=== PATIENT | female | born 1985 | race American Indian/Alaskan Native ===

== ENCOUNTER 2018-01-02 06:13 | Day surgery (SDC) | payer BC ==
[2017-12-21 10:48] VITALS: BMI 30.9
[2018-01-02] MEDS ORDERED: Lactated Ringer's 1,000 ML IV ONE ×3 (06:59→12:40)
--- NOTE | 2018-01-02 07:09 | CP.SDSHP ---
Same Day Surgery H & P - History Proposed Procedure: L ankle arthroscopy, repair of posterior tibial tendon,FHL transfer & MECHELLE Pre-Op Diagnosis: Left foot and ankle chorinic pain; painful hardware - Allergies Allergies: Allergies No Known Allergies Allergy (Verified 12/21/17 10:48) - Physical Exam Vital Signs: Vital Signs 01/02/18 01/02/18 06:35 06:38 Temperature 98.5 F Pulse Rate 74 74 Respiratory 20 Rate Blood Pressure 126/87 O2 Sat by Pulse 97 Oximetry Heart: WNL Lungs: WNL - {Optional Preform as Required} Abdomen: WNL Integument: WNL Ortho: Other ENT: WNL - Date & Time Date: 01/02/18 Time: 07:08 Short Stay Discharge - Short Stay Discharge Admitting Diagnosis/Reason for Visit: M76.822/ [id number]/ M93.272/ Disposition: HOME/ ROUTINE Referrals: Maryann Rivero, [facility] [Primary Care Provider] - Additional Instructions (Diet, Activity): Patient in good/stable condition for discharge home. Pt to resume medications per medical reconciliation. Resume regular diet. Please keep dressing clean, dry, & intact to surgical site, use plastic bag over bandage for showering, wear post op shoe at all times when ambulating, call clinic if you see signs of infection (redness, swelling, malodor), please make an appointment to see Dr. Rivero in office/clinic within 1 week for post-op check. Progress Note/Discharge Note with Instructions: Pt was seen and examined in SDS Pt NPO status was confirmed All Pre-op testing and clearance was in the chart Pt has exhausted all conservative treatment at this time and is opting for surgical intervention Pt was explained procedure and post-operative course All pt's questions were answered to satisfaction No guarantees were made Pt understands all risks, benefits and complications of procedure Pt will follow-up with Dr. Rivero
--- NOTE | 2018-01-02 07:11 | CP.PCM.PN ---
Subjective - Date & Time of Evaluation Date of Evaluation: 01/02/18 Time of Evaluation: 07:09 - Subjective Subjective: Podiatry SDS note: Dr. Rivero 32 year old female patient with no significant PMHx was seen and evaluated prior to left foot and ankle surgery. Patient reports that she has been NPO since 10 pm yesterday. Denies of having any adverse reaction to anesthesia. Denies of having any recent F/N/V/C/SOB/CP/headache. PMHx: denies PSHx: Flat foot reconstruction surgery - left foot Allergies: N.K.D.A SHx: Denies smoking, EtOH or illicit drug usage Objective - Vital Signs/Intake and Output Vital Signs (last 24 hours): Temp Pulse Resp BP Pulse Ox 98.5 F 74 20 126/87 97 01/02/18 06:35 01/02/18 06:38 01/02/18 06:35 01/02/18 06:35 01/02/18 06:35 - Constitutional Appears: Well, Non-toxic, No Acute Distress - Extremities Exam Additional comments: LEft LE focused exam: VASC: DP/PT pulses are palpable 2/4 B/L. Cap refill time: < 3 seconds to all digits. Skin temperature warm to cool from proximal to distal. no pitting or non -pitting edema noted DERM: surgical scars noted from the previous left foot procedure, no open lesions, no inter digital maceration, nails are cut to hygenic length, no clinical suspicion of active infection NEURO: Epicritic and protective sensation intact ORTHO: mild pain during AROM and PROM at the AJ; MMT: 5/5 during ROM in all 4 direction at the ankle joint Assessment and Plan - Assessment and Plan (Free Text) Assessment: 32 year old female patient with no significant PMHx was seen prior to left foot and ankle surgery Plan: Pt was seen and examined in SDS Pt NPO status was confirmed All Pre-op testing and clearance was in the chart Pt has exhausted all conservative treatment at this time and is opting for surgical intervention Pt was explained procedure and post-operative course All pt's questions were answered to satisfaction No guarantees were made Pt understands all risks, benefits and complications of procedure Pt will follow-up with Dr. Rivero
[2018-01-02] MEDS ORDERED: Lidocaine 1% Inj (20ml) IJ ONE (07:15)
[2018-01-02] MEDS ORDERED: Bupivacaine 0.5% Inj(30mL) IJ ONE (07:15)
[2018-01-02] MEDS ORDERED: Sodium Chloride 0.9% 1,000 ML IV SCH (07:15)
[2018-01-02] MEDS ORDERED: ceFAZolin 2 GM in Sodium Chloride 0.9% 100 ML IVPB ONE (07:15)
[2018-01-02] MEDS ORDERED: Bupivacaine 0.5% Inj(30mL) ONE (07:29)
[2018-01-02] MEDS ORDERED: Lidocaine Hydrochloride 0 ML INJ ONE (07:29)
[2018-01-02] MEDS ORDERED: Midazolam 2 MG/2 ML VIAL ONE (07:35)
[2018-01-02] MEDS ORDERED: Propofol 10 mg/ml Inj (20 ML) ONE (07:35)
[2018-01-02] MEDS ORDERED: Ropivacaine 0.5% 30ML IV ONE (07:46)
[2018-01-02] MEDS ORDERED: EPINEPHrine 1 mg/ml (1:1000) Inj ONE (07:58)
--- NOTE | 2018-01-02 08:28 | PCM.ANESB2 ---
Popliteal Nerve Block - Popliteal Nerve Block Date of Procedure: 01/02/18 Anesthesiologist: Estuardo Pre-Procedure Diagnosis: Left ankle pain Post-Procedure Diagnosis: Same Procedure Performed: Popliteal Nerve Block Left - Procedure Popliteal Nerve Block: This procedure was explained to the patient that it is for post-operative pain management. Consent was obtained after a thorough discussion with the patient regarding the benefits and possible complications of local anesthetic block of the sciatic nerve at the popliteal level. The patient was brought to the operating room and standard monitors are applied. Time-out was held with the circulating nurse to confirm the correct surgery and the appropriate block. After applying oxygen by nasal cannula and administering IV Sedation, patient's operative leg was gently raised and supported and the groove in between the biceps femoris and vastus lateralis muscles was carefully palpated. The skin approximately 8cm above the popliteal crease was then marked. The ultrasound transducer was then applied to the posterior thigh approximately 8cm above the popliteal crease in the transverse plane and the sciatic nerve before its division was visualized lateral to the popliteal artery and in between the bicep femoris and semimembranosus/semitendinosus muscles. After identification, the lateral portion of the thigh was prepped with Betadine solution three times and Lidocaine 1% was injected subcutaneously for topical anesthesia. At this point, a # 21 gauge Stimuplex insulated 4 inch needle was inserted into pre-marked area and advanced in a perpendicular direction. The needle was inserted above the ultrasound transducer in-plane towards the sciatic nerve in a [id number] direction. Needle advancement was performed carefully under direct ultrasound visualization. Nerve stimulator was used and dorsiflexion of the foot was elicited at a current of MA. After repeated negative aspiration, __20___cc of ___.5__ % ____ropivacaine was injected and this was flowed with ___10___ cc of ___.5___% ____bupivacaine . Under ultrasound guidance the local anesthetics were observed surrounding sciatic nerve . The needle was removed intact and sterile dressing was applied. The patient tolerated the popliteal nerve block well with stable vital signs and was subsequently prepared for the surgery.
[2018-01-02] MEDS ORDERED: EPINEPHrine 1 mg/ml (1:1000) Inj IV ONE (08:47)
[2018-01-02] MEDS ORDERED: Sevoflurane - Inhalation Anesthetic Liq (250 ml) ONE (11:27)
[2018-01-02] MEDS ORDERED: MethylPREDNISolone Depo 40 mg/ml Inj ONE (11:45)
[2018-01-02] MEDS ORDERED: MethylPREDNISolone Depo 40 mg/ml Inj IM ONE ×2 (11:49)
[2018-01-02] MEDS ORDERED: Bupivacaine 0.5% 50 ML IJ ONE ×2 (11:49)
[2018-01-02] MEDS ORDERED: Oxycodone/Acetaminophen 5/325 mg Tab PO PRN ×2 (12:43)
--- NOTE | 2018-01-02 12:49 | PCM.SURG1 ---
Surgeon's Initial Post Op Note - Surgeon's Notes Surgeon: Dr. Rivero Patrol Mother: Dr. Andrade, Dr. Soria Type of Anesthesia: General Endo, Block Regional Anesthesia Administered By: Dr. Smart Pre-Operative Diagnosis: 1. Left ankle OCD of the talus. 2. Left foot painful hardware. 3. Left foot flexible flatfoot deformity. 4. Left foot posterior tibial synovitis. 5. Left foot spring ligament rupture. 6. Left foot sinus tarsi syndrome Operative Findings: see dictation. M: Arthrex Biocartilage, Arthrex internal brace. I: 5ml 1:1 0.5% marcaine plain, kenalog 40 Post-Operative Diagnosis: 1. Left ankle OCD of the talus. 2. Left foot painful hardware. 3. Left foot flexible flatfoot deformity. 4. Left foot posterior tibial synovitis. 5. Left foot spring ligament rupture. 6. Left foot sinus tarsi syndrome Operation Performed: 1. Left ankle arthroscopy and synovectomy with repair of talar OCD. 2. Left foot removal of hardware. 3. Left foot spring ligament repair and augmentation. 4. Left foot FDL transfer. 5. Left foot sinus tarsi injection of corticosteroid Specimen/Specimens Removed: none Estimated Blood Loss: EBL {In ML}: 15 Blood Products Given: N/A Drains Used: No Drains Post-Op Condition: Good Date of Surgery/Procedure: 01/02/18 Time of Surgery/Procedure: 12:51
[2018-01-02] MEDS ORDERED: Lactated Ringer's 1,000 ML IV SCH (13:00)
[2018-01-02] MEDS: HYDROmorphone 0.5 mg/0.5 ml ISec IVP PRN ×3 (13:20→13:38)
[2018-01-02 13:33] VITALS: RESP 18
--- NOTE | 2018-01-02 14:11 | RAD ---
PROCEDURE: Left Foot Radiographs. HISTORY: s/p surgery COMPARISON: Not available FINDINGS: BONES: Bony detail obscured by overlying fiberglass splint. There is a healed fracture of the 1st metatarsal. There is a pin affixing the anterior and middle calcaneus. There are 2 screws through the posterior calcaneus. There is questionable fracture of the navicular. There is a lucency within the navicular suggesting prior orthopedic hardware placement. JOINTS: Normal. SOFT TISSUES: Normal. OTHER FINDINGS: None. IMPRESSION: Limited examination. Status post fixation of calcaneus with placement of orthopedic hardware. Questionable fracture of the navicular in association with a lucency likely reflecting prior surgery. Please correlate with history.
[2018-01-02 15:54] VITALS: BP 137/67; PULSE 81; TEMP 97.8; O2SAT 100
--- NOTE | 2018-01-04 07:02 | OP ---
PROCEDURE DATE: 01/02/2018 PREOPERATIVE DIAGNOSES: 1. Left ankle synovitis and osteochondral lesion of the talus. 2. Left foot painful retained hardware. 3. Left foot flexible pes planovalgus deformity. 4. Left foot posterior tibial synovitis. 5. Left foot spring ligament rupture. 6. Left foot sinus tarsi syndrome. POSTOPERATIVE DIAGNOSES: 1. Left ankle synovitis and osteochondral lesion of the talus. 2. Left foot painful retained hardware. 3. Left foot flexible pes planovalgus deformity. 4. Left foot posterior tibial synovitis. 5. Left foot spring ligament rupture. 6. Left foot sinus tarsi syndrome. PROCEDURES PERFORMED: 1. Left ankle arthroscopy and synovectomy with repair of talar osteochondral lesion with allograft. 2. Left foot removal of hardware. 3. Left foot posterior tibial tendon synovectomy and flexor digitorum longus tendon transfer. 4. Left foot spring ligament repair and augmentation. 5. Left foot sinus tarsi injection with corticosteroid. SURGEON: Maryann Rivero MD ASSISTANTS: Abel Andrade DPM, PGY-3 and Sergio Soria DPM, PGY-1. TYPE OF ANESTHESIA: General and popliteal block. ANESTHESIOLOGIST: Mann Smart MD INDICATIONS: The patient is a 32-year-old female with the aforementioned diagnosis. The patient has been treated by Dr. Rivero in her office as an outpatient where she had exhausted all forms of conservative treatment. The patient presents seeking surgical intervention at this time. All alternatives, benefits, complications, and risks to surgical procedure have been explained to the patient at length. The patient verbalizes understanding and wished to proceed. All questions were addressed and answered. No guarantees were given nor implied. The consent was signed and n.p.o. status was confirmed prior to bringing the patient to the operating room. OPERATIVE PROCEDURE: The patient was brought to the operating room and placed on the operating room table in the supine position. A pneumatic thigh tourniquet was placed around the patient's left thigh. After induction of general anesthesia, the left lower extremity was prepped and draped in the normal sterile manner and the procedure began. PROCEDURE #1: Left ankle arthroscopy and synovectomy with repair of talar osteochondral lesion with allograft. Attention was directed to the anterior aspect of the patient's left ankle where a stab incision was made with 15 blade at the level of the ankle joint just medial to the tibialis anterior tendon, which served as a medial portal for the ankle arthroscopy. The incision was deepened for blunt hemostat to the superficial and subcutaneous tissues down to the level of the ankle joint capsule. Next, the trocar and cannula were inserted through the medial portal and used to penetrate the medial ankle joint capsule. The trocar was then removed and the arthroscope was then inserted to the cannula. At this time, the ankle joint was visualized on the monitoring and it was noted there was a significant amount of synovitis throughout the ankle joint. Next, a 15 blade was then again utilized to make a lateral portal for the ankle arthroscopy under visualization to ensure that all superficial neurovascular structures were avoided. Again, a blunt hemostat was utilized to deepened the incisions with superficial and subcutaneous tissues down to the level of the lateral ankle joint capsule. The trocar was then utilized to penetrate the lateral ankle joint capsule. Next, the shaver was inserted to the lateral portal and triangulated and visualized with arthroscope down the monitor. The shaver was then utilized to debride all visible synovitic and fibrous tissue within the ankle joint. At this time, it was noted that all the synovitis and impinging fibrotic tissue had been adequately debrided. The arthroscope was then utilized to inspect the cartilage and the dome of the talus. The shaver was then removed from lateral portal and a probe was inserted and utilized to further inspect the integrity of the cartilage on the talar dome. It was noted that there was a compromised spot in the posteromedial aspect of the talar dome where the cartilage was not solid and not intact. The probe was then utilized to probe the boundaries of osteochondral lesion. Once the osteochondral lesion was defined, the shaver was reinserted through the lateral portal and utilized to remove the nonviable cartilage. The shaver was then removed from the lateral portal and a curette was inserted and utilized to curette all the nonviable cartilage from the osteochondral lesion. A shaver and curette were then used interchangeably to further deepen lesion down to the subchondral bone. Once the subchondral bone was visualized in all was inserted through the lateral portal and with a mallet, it was utilized to penetrate through the subchondral bone in the area of the osteochondral defect. The awl was utilized until the fatty droplets from the underlying talar bone marrow were visualized coming through the subchondral bone. With the osteochondral lesion now adequately microfractured and prepared, the awl was removed from the lateral portal and the shaver was reinserted and the irrigation was turned off and the ankle joint was dried using the suction. At this time, the Arthrex BioCartilage was being prepared for using osteochondral defect. The shaver was then removed from the lateral portal and a series of cotton tip applicators were inserted to the lateral portals to dry the osteochondral lesion for preparation of insertion of the BioCartilage allograft with the side adequately prepared. The applicator for the Arthrex BioCartilage allograft was inserted through lateral portal and the BioCartilage was placed within the osteochondral defect ensuring to not over extend the cartilaginous borders. The applicator was then removed and a freer elevator was inserted through the lateral portal used to smooth the BioCartilage allograft. The freer elevator was then removed from the lateral portal and the fibrin glue applicator was inserted and its applicator fibrin glue was placed overtop of BioCartilage to secure utilizing standard technique. The arthroscope and applicator were then removed from the medial and lateral portal and the fibrin glue was allowed to solidify for approximately 5 minutes. The medial and lateral portals were then closed utilizing 4-0 Prolene suture. PROCEDURE #2: Left foot removal of painful retained hardware. Intraoperative fluoroscopy was utilized to localized the retained staple at the first metatarsal medial cuneiform joint. An incision was made directly overlying this area in the location of the previous surgical site with 15 blade. The incision was deepened through the superficial and subcutaneous tissues utilizing a sharp and blunt dissection. Care was taken to retract all vital neurovascular and tendon structures throughout the duration of the procedure. A freer elevator and Santamaria elevator were further utilized to free the capsular and periosteal tissues from the location of the staple. It was noted that throughout the dissection, there was an abundant amount of hypertrophic fibrotic scar tissue in the area. The staple was then visualized and an osteotome and mallet were utilized to remove the staple from the bone and it was passed from the surgical field to the back table. The surgical area was then flushed with copious amounts of sterile normal saline. The periosteum and capsular tissues were then reapproximated utilized 3-0 Vicryl suture, the subcutaneous tissues were then reapproximated utilizing 4-0 Vicryl suture, and the skin was then reapproximated utilizing 4-0 Monocryl suture. PROCEDURE #3: Left foot posterior tibial tendon synovectomy and flexor digitorum longus tendon transfer. Attention was then directed to the medial aspect of the patient's left foot and ankle where a curvilinear incision was made from just posterior to the medial malleolus to the navicular tuberosity. An incision was made with the 15 blade and deepened to the superficial and subcutaneous tissues utilizing sharp and blunt dissection. Care was taken to retract all vital neurovascular structures throughout the duration of the procedure and all superficial bleeding vessels were cauterized utilizing electrocautery. Dissection was then carried down to the level of the flexor retinaculum and the flexor retinaculum was incised linearly with a dissecting scissor. At this time, the foot was manipulated so as to identify the posterior tibialis tendon directly deep to the tendon sheath. Once the tendon was identified, a dissecting scissor was utilized to make an incision through the tendon sheath. At this time, it was noted that there was a abundant amount of degenerative synovitic tissue within the tendon sheath to the posterior tibialis tendon. A pickup and dissecting scissor were utilized to remove all the degenerative tissue and synovitis from within the tendon sheath and it was passed from the surgical field to the back table. Next, the posterior tibialis tendon was dissected down to the level of the incision at the navicular tuberosity and the navicular tuberosity and navicular body were further exposed. Next, the flexor digitorum longus tendon was identified deep to the tendon sheath and again dissecting scissor was utilized to incise the tendon sheath and exposed the flexor digitorum longus tendon. Flexor digitorum longus tendon was then dissected all the way distally to the master knot of Karl. At this time a preparation for a flexor digitorum longus tendon transfer, the digitorum longus tendon was transected just proximal to the master knot of Karl. A FiberLoop whipstitch was then utilized to secure the distal line of the flexor digitorum longus tendon and there was satisfied to be used for a transfer at a later step. PROCEDURE #4: Left foot spring ligament repair and augmentation. Utilizing the same surgical incision, the spring ligament could be visualized and we noted that it had been ruptured and was no longer intact. Dissection was then carried down to the level of the sustentaculum flaquito and the sustentaculum flaquito was visualized. Next, the preparation for the Arthrex spring ligament internal brace repair, the guidewire for the cannulated drill was inserted just inferior to the sustentaculum flaquito and visualized to be in the appropriate location with intraoperative fluoroscopy. Next, the cannulated drill for the Arthrex 3.5-mm SutureTak was drilled overlying the previously inserted guidewire utilizing standard technique. A guidewire was then removed and the appropriate sized tap was utilized to compare the hole for the insertion of the internal brace. The 3.5-mm SutureTak with two FiberTape attached tails were then inserted utilizing standard technique into this previously just inferior to the sustentaculum flaquito. Next, attention was directed to the navicular body where the guide pin for the Arthrex at the all transfer reamer was inserted from plantar to dorsal through the navicular body. Intraoperative fluoroscopy was utilized taking from appropriate positioning of the guide pin. Next, the tendon sizer was utilized to size the flexor digitorum longus tendon and the appropriate size 5-mm reamer was chosen and used to ream over the guide pin from plantar to dorsal through the navicular body. The reamer and guide pin were then removed from the surgical site. The first tail from the internal brace was then inserted from dorsal to plantar through the hole in the navicular body utilizing the suture passer. The second tail of the internal brace along with the FDL tendon was then inserted from plantar to dorsal to the hole in the navicular body utilizing the guide pin and suture passer. Next, staple withheld in the appropriately corrected position with appropriate attention on both end of the internal brace as well as the FDL tendon. The 4.75 interference SutureTak was then inserted from plantar to dorsal through the hole in the navicular body to care the spring ligament internal brace repair and the flexor digitorum longus tendon transfer. The SutureTak was inserted utilizing standard technique and after insertion, it was noted that there was excellent stability of the repair. The surgical area was then flushed with copious amount of sterile normal saline. The periosteal and a capsular as well as the retinacular structures were then reapproximated utilizing 2-0 Vicryl suture, the retinacular and deep layers were then reapproximated utilizing 3-0 Vicryl suture, the subcutaneous tissues were then reapproximated utilizing 4-0 Vicryl suture, and the skin was reapproximated utilizing 4-0 Monocryl suture in a running subcuticular fashion. PROCEDURE #5. Left foot sinus tarsi injection with corticosteroid. A 5 mL one-to-one preparation of 0.5% Marcaine plain and Kenalog-40 was then injected into the sinus tarsi from the lateral aspect of the patient's foot. Postoperative bandages consisted of Steri-Strips, Xeroform, DSD, Nicki, cast padding, a posterior splint, and Robert bandages. POSTOPERATIVE CONDITION: The patient tolerated the procedures and anesthesia well with no apparent complications or complaints. The patient was escorted from the OR to the recovery room with vital signs stable and neurovascular status intact. The patient will follow up with Dr. Rivero in her office on an outpatient basis. Abel Andrade DPM Maryann Rivero MD
== END 2018-01-02 16:05 | disposition home or self-care (01) ==
LOC: H.OPSURG 06:13
PROVIDERS: ATTEND Podiatrist Foot & Ankle Surgery
DX: M93.272 Osteochondritis dissecans, left ankle and joints of left foot (principal); M76.822 Posterior tibial tendinitis, left leg; M65.872 Other synovitis and tenosynovitis, left ankle and foot; T84.84XA Pain due to internal orthopedic prosthetic devices, implants and grafts, initial encounter; M21.42 Flat foot [pes planus] (acquired), left foot
CPT/HCPCS: 20550; 20680; 29895; 73630; 88304; 97162; C1713; G8978; G8979; G8980; J0171; J0690; J1030; J1170; J2001; J2250; J2704; J3010; J7030; J7040; J7120

== ENCOUNTER 2018-06-26 06:42 | Day surgery (SDC) | payer BC ==
[2018-06-20 16:38] VITALS: BMI 30.3
[2018-06-26] MEDS ORDERED: Propofol 10 mg/ml Inj (20 ML) ONE (07:27)
[2018-06-26] MEDS ORDERED: ePHEDrine 50 mg/ml Inj ONE (07:28)
[2018-06-26] MEDS ORDERED: Rocuronium 10 mg/ml (5 ml) ONE (07:28)
[2018-06-26] MEDS ORDERED: Succinylcholine 200 mg/10 ml Inj IV ONE (07:28)
[2018-06-26] MEDS ORDERED: Midazolam 2 MG/2 ML VIAL ONE (07:28)
[2018-06-26] MEDS ORDERED: Lidocaine 1% Inj (20ml) ONE (07:29)
[2018-06-26] MEDS ORDERED: Sodium Chloride 0.9% 10 ML IV ONE (07:32)
--- NOTE | 2018-06-26 07:32 | CP.PCM.PN ---
Subjective - Date & Time of Evaluation Date of Evaluation: 06/26/18 Time of Evaluation: 07:30 - Subjective Subjective: SDS Note for Dr. Rivero: 33 yo female patient, with no significant PMHx, seen and evaluated for R flatfoot reconstruction surgery. She states she has been in continuous pain for years to her R foot. She reports having a previous surgery where an implant was placed in her foot to help it from rolling in, however it failed. She states that she has remained NPO. Denies any previous adverse reactions to anesthesia. Denies N/F/V/SOB. PMHx: denies PSHx: L foot reconstructive surgery Allergies: NDKA SHx: Denies tobacco, alcohol use, or illicit drug use Objective - Vital Signs/Intake and Output Vital Signs (last 24 hours): Temp Pulse Resp BP Pulse Ox 98.3 F 67 18 117/70 100 06/26/18 07:26 06/26/18 07:26 06/26/18 07:26 06/26/18 07:26 06/26/18 07:26 - Constitutional Appears: Well, Non-toxic, No Acute Distress - Head Exam Head Exam: ATRAUMATIC, NORMOCEPHALIC - Extremities Exam Additional comments: RLE focused exam: Vascular: DP/PT pulses 2/4 bilaterally. CFT < 3 seconds to all digits. Temperature gradient warm to warm from proximal to distal. Mild diffuse edema noted to sreedhar-malleolar region. Ortho: Mild tenderness to palpation along posterior tibial tendon, MMT 5/5 in all compartments. Pes planus deformity appreciated. Neuro: Gross and protective sensation intact Derm: Previous surgical scar noted to dorsal-lateral aspect of R foot, no open lesions, no interdigital maceration, no clinical signs of infection noted to RLE - Neurological Exam Neurological Exam: Alert, Awake, Oriented x3 - Psychiatric Exam Psychiatric exam: Normal Affect, Normal Mood Assessment and Plan - Assessment and Plan (Free Text) Assessment: 33 yo female patient, with no significant PMHx, seen and evaluated for R flatfoot reconstruction surgery. Plan: Pt was seen and examined in SDS Pt NPO status was confirmed All pre-op testing and clearance in chart Pt has exhausted all conservative treatment at this time and is opting for surgical intervention Pt was explained procedure and post-operative course All pt's questions were answered to satisfaction No guarantees were made Pt understands all risks, benefits and complications of procedure Pt will follow-up with Dr. Rivero within 1 week of surgery
[2018-06-26] MEDS ORDERED: Sevoflurane - Inhalation Anesthetic Liq (250 ml) ONE (07:37)
[2018-06-26] MEDS ORDERED: Bupivacaine 0.5% Inj(30mL) IJ ONE (07:42)
[2018-06-26] MEDS ORDERED: Lidocaine 1% Inj (20ml) IJ ONE (07:42)
[2018-06-26] MEDS ORDERED: Sodium Chloride 0.9% 1,000 ML IV SCH (07:45)
[2018-06-26] MEDS ORDERED: Lactated Ringer's 1,000 ML IV ONE ×2 (08:00→09:10)
--- NOTE | 2018-06-26 08:15 | CP.SDSHP ---
Same Day Surgery H & P - History Proposed Procedure: Right gastroc recession, osteotomy with graft, and potential tendon transfer Pre-Op Diagnosis: Right foot pes planus deformity - Allergies Allergies: Allergies No Known Allergies Allergy (Verified 06/26/18 06:52) - Physical Exam Vital Signs: Vital Signs 06/26/18 06/26/18 07:20 07:26 Temperature 98.3 F Pulse Rate 67 67 Respiratory 18 Rate Blood Pressure 117/70 O2 Sat by Pulse 100 Oximetry Mental Status: Alert & Oriented x3 Neuro: WNL Heart: WNL Lungs: WNL GI: WNL - Impression Pt. Evaluated Today:Candidate for Anesthesia & Procedure: Yes - Date & Time Date: 06/26/18 Time: 08:13 Short Stay Discharge - Short Stay Discharge Admitting Diagnosis/Reason for Visit: M21.41,M21.679,M79.671 Disposition: HOME/ ROUTINE Referrals: Maryann Rivero, YOHANNESM [Primary Care Provider] - Additional Instructions (Diet, Activity): -Patient in good/stable condition for discharge home -Pt to resume medications per medical reconciliation -Resume regular diet - Please keep dressing clean, dry, & intact to surgical site -Use plastic bag over bandage for showering -Wear post op shoe at all times when ambulating -Call clinic if you see signs of infection (redness, swelling, malodor) -Please make an appointment to see Dr. Rivero in office/clinic within 1 week for post-op check Progress Note/Discharge Note with Instructions: - Patient evaluated bedside in recovery - After surgical procedure patient in NAD - (+) Void, (+) Appetite - Capillary refill time <3s and NVS intact. - Patient denies complaints at this time. - Post operative instructions and plan of care explained to patient at length. - Patient. acknowledges verbal understanding. - Patient stable for DC per podiatric surgery
[2018-06-26] MEDS ORDERED: Dexamethasone 4 mg/1 ml ONE (08:27)
[2018-06-26] MEDS ORDERED: ceFAZolin IV 1 gm in Dextrose 1 GM/50 ML BAG IVPB ONE ×3 (08:28→12:30)
[2018-06-26] MEDS: Bupivacaine HCl 0.25% PF (30 ml) Inj ONE ×2 (08:30→12:40)
[2018-06-26] MEDS ORDERED: MethylPREDNISolone Depo 40 mg/ml Inj ONE (08:37)
[2018-06-26] MEDS ORDERED: ceFAZolin 1 GM in Sodium Chloride 0.9% 100 ML IVPB SCH (09:00)
[2018-06-26] MEDS ORDERED: Esmolol 100 mg/10ml Inj IV ONE (10:41)
[2018-06-26 11:08] VITALS: RESP 18; O2SAT 100
[2018-06-26] MEDS ORDERED: Bupivacaine HCl 0.25% PF (30 ml) Inj ONE ×2 (11:41→11:58)
--- NOTE | 2018-06-26 13:31 | PCM.SURG1 ---
Surgeon's Initial Post Op Note - Surgeon's Notes Surgeon: Dr. Maryann Rivero, DPM Relocation Specialist: Jamari Dougherty, PGY-3; Giovani Cervantes, PGY-3 Type of Anesthesia: General LMA, Local (18mL of 0.25% marcaine plain) Anesthesia Administered By: Dr. Shelly MD Pre-Operative Diagnosis: Right foot 1)Pes plano-valgus deformity 2)Posterior tibial tendon dysfunction 3) Posterior tibial tendon tenosynovitis 4) Tendo- achilles equinus contracture Operative Findings: See dictation. M: Synthes 6.5 x 45mm cannulated partially treaded screw; [employer] Allopure 6mm Cotton wedged allograft; [employer] 8mm Allopure cancellous allograft; 4-0 nylon; 4-0 monocryl; 2-0 vicryl; 3-0 vivryl; 4-0 vicryl. I: 10ml 0.25% marcaine plain Post-Operative Diagnosis: Same as pre-operative Operation Performed: Right foot: 1) Tendo-achilles lengthening 2) Proximal calcaneal medial slide osteotomy 3) Distal calcaneal osteotomy/ lateral column lengthening with allograft 4) Medial cuniform osteotomy with allograft 5) Posterior tibial tendon debridement with synovectomy Specimen/Specimens Removed: None Estimated Blood Loss: EBL {In ML}: 50 Blood Products Given: N/A Drains Used: No Drains Post-Op Condition: Good Date of Surgery/Procedure: 06/26/18 Time of Surgery/Procedure: 13:40
--- NOTE | 2018-06-26 13:40 | PCM.ANESB2 ---
Popliteal Nerve Block - Popliteal Nerve Block Date of Procedure: 06/26/18 Procedure Performed: Popliteal Nerve Block Right - Procedure Popliteal Nerve Block: This procedure was explained to the patient that it is for post-operative pain management. Consent was obtained after a thorough discussion with the patient regarding the benefits and possible complications of local anesthetic block of the sciatic nerve at the popliteal level. The patient was brought to the operating room and standard monitors are applied. Time-out was held with the circulating nurse to confirm the correct surgery and the appropriate block. The patient's operative leg was gently raised and supported and the groove in between the biceps femoris and vastus lateralis muscles was carefully palpated. The skin approximately 8cm above the popliteal crease was then marked. The ultrasound transducer was then applied to the posterior thigh approximately 8cm above the popliteal crease in the transverse plane and the sciatic nerve before its division was visualized lateral to the popliteal artery and in between the bicep femoris and semimembranosus/semitendinosus muscles. After identification, the lateral portion of the thigh was prepped with chloroprep solution. At this point, a # 21 gauge Stimuplex insulated 4 inch needle was inserted into pre-marked area and advanced in a perpendicular direction. The needle was inserted above the ultrasound transducer in-plane towards the sciatic nerve in a [id number] direction. Needle advancement was performed carefully under direct ultrasound visualization. Nerve stimulator was used and dorsiflexion of the __right___ foot was elicited at a current of __0.4__ MA. After repeated negative aspiration, ___5__cc of ___bupivacaine 0.25__ % was injected and this was flowed with ___19___ cc of __bupivacaine 0.25____% . Under ultrasound guidance the local anesthetics were observed surrounding sciatic nerve . The needle was removed intact and sterile dressing was applied. The patient tolerated the popliteal nerve block well with stable vital signs.
[2018-06-26] MEDS ORDERED: Oxycodone/Acetaminophen 5/325 mg Tab PO PRN (13:42)
--- NOTE | 2018-06-26 14:35 | RAD ---
Date of service: 06/26/2018 PROCEDURE: Right Foot Radiographs. HISTORY: s/p right foot surgery COMPARISON: None of the right foot FINDINGS: BONES: A calcaneal osteotomy with 2 position screws transfixing the surgical site are noted. The posterior calcaneal for this segment is approximately 3 mm cephalad to the anterior segment. The anatomy of the anterior calcaneal process and more anterior inferior calcaneal segment is indeterminate postsurgical changes here are and/or prior trauma here considerations. Clinical goal history with prior interventions and/or prior imaging studies is needed. Well corticated 6 mm ossification borders dorsal talar beaking. Mottled lucency over the medial cuneiform bone of unknown chronicity. Contour changes probably relating to prior surgical intervention involving the distal 1st metatarsal correlate clinically. Developmental variation is another consideration. JOINTS: First metatarsal-phalangeal joint arthrosis. SOFT TISSUES: Examination made through casting splinter OTHER FINDINGS: The cuneiform bone lateral view appears inferiorly position 2 mm relative to the more distal cuneiform and proximal navicular bones-projectional effects and/or partial midfoot collapse are some considerations. Comparison with prior imaging studies is recommended. IMPRESSION: Postsurgical changes as above. Clinical correlation is essential with prior specific interventions and any prior known imaging appearances in terms of assessing city of the above mentioned findings.
--- NOTE | 2018-06-26 15:52 | RAD ---
Date of service: 06/26/2018 PROCEDURE: Fluoroscopic assistance in excess of 1 hour. HISTORY: Open reduction internal fixation right calcaneal fracture COMPARISON: None TECHNIQUE: Standard protocol for this study/examination. FINDINGS: Total fluoroscopic time (continuous mode) utilized during the procedure 166.4 (seconds). IMPRESSION: Total exam DLP: 4.98 (mGy).
[2018-06-26 16:50] VITALS: BP 142/76; PULSE 86; TEMP 97.8
[2018-06-26] MEDS ORDERED: ceFAZolin IV 1 gm in Dextrose 1 GM/50 ML BAG IVPB SCH (17:00)
--- NOTE | 2018-07-01 09:07 | OP ---
PROCEDURE DATE: 06/26/2018 PATIENT'S AGE: 33. PATIENT'S GENDER: Female. PRIMARY SURGEON: Maryann Rivero DPM PRIMARY AUTOMOTIVE ARTIST: Freeman Dougherty DPM, PGY-3 SECONDARY AUTOMOTIVE ARTIST: Mala Cervantes DPM, PGY-3 ANESTHESIOLOGIST: Lucio Kirkpatrick MD ANESTHESIA TYPE: General LMA with local anesthetic. PREOPERATIVE DIAGNOSES: 1. Right foot pes planovalgus deformity. 2. Right foot posterior tibial tendon dysfunction. 3. Right foot posterior tibial tendon tenosynovitis. 4. Right foot tendo Achilles equinus contracture. POSTOPERATIVE DIAGNOSES: 1. Right foot pes planovalgus deformity. 2. Right foot posterior tibial tendon dysfunction. 3. Right foot posterior tibial tendon tenosynovitis. 4. Right foot tendo Achilles equinus contracture. PROCEDURES PERFORMED: 1. Right foot tendo Achilles lengthening. 2. Right foot proximal calcaneal medial slide osteotomy. 3. Right foot distal calcaneal osteotomy/lateral column lengthening with allograft. 4. Right foot medial cuneiform osteotomy with allograft. 5. Right foot posterior tibial tendon debridement with synovectomy. INDICATIONS: The patient is a 33-year-old female with all the above-stated diagnoses. The patient has exhausted all conservative treatment options provided by Dr. Rivero and is now in need of surgical intervention. The patient signed the surgical consent after careful explanation of risks, benefits, complications, potential alternatives to each of the proposed procedures. No guarantees either given or implied. All the patient's questions were answered to her satisfaction. PREPARATION: The patient's NPO status was confirmed prior to bringing the patient to the operative room. The patient was brought to the operative room and placed on the operating room table in a supine position. Once IV sedation confirms to have been achieved, the patient received a well-padded pneumatic tourniquet at the level of the mid thigh which was set at 350 mmHg to be inflated once the procedure began. Once general anesthesia was confirmed to have been achieved, the patient then received an ipsilateral inferior gluteal bump placed inferior to the operating room mattress pad which adequately positioned the patient. The patient then received a total of 18 mL of 0.25% Marcaine plain in local block type fashion at the level of the patient's right ankle. At this time, the patient's right lower extremity was then prepped and draped to the level of the mid calf, foot and leg were exsanguinated. Tourniquet was inflated and proceeded again. PROCEDURE #1: Right foot tendo Achilles lengthening. Attention was then directed to the posterior aspect of the patient's left leg where the insertion and distal course of the right Achilles tendon were palpated and marked. At this time, using a #11-blade, a total of three percutaneous hemisections were performed of the Achilles tendon, two laterally and one medially with most distal occurring 2 cm proximal to the insertion of the Achilles tendon and each subsequent hemisection spaced 1.7 cm apart, was then placed to maximal dorsiflexion and release of equinus contracture was found to be adequate. Surgical site was then flushed with copious amounts of sterile saline. Percutaneous incision sites were then reapproximated using 4-0 nylon. PROCEDURE #2: Right proximal calcaneal medial slide ostectomy. Attention was then directed to the posterior lateral aspect of the patient's right heel where posterior lateral calcaneal tubercle was palpated and marked. At this time, under fluoroscopic guidance, an incision which spared the proximal tuberosity and Achilles tendon insertion was evaluated and marked. Using #15 blade, a 3-cm linear longitudinal incision was made in the lateral surface of the posterior lateral foot. This incision was extended up to the subcutaneous tissue layer with care being taken to identify, avoid, and retract all vital neurovascular structures. All bleeders were cauterized and ligated as needed. At this time, electrocautery was utilized to perform a linear periosteal cut inline with the incision. Superior inferior borders of the calcaneus were marked, and the skin was retracted dorsally and plantarly. At this time, calcaneal tuberosity was cut using a sagittal saw near perpendicular to the long axis of the calcaneus. The ostectomy was then spread open with the use of a engineer second assistant to free and stretch the medial periosteal structures. The tuberosity was then shifted 10 mm medially and was temporarily fixated using a 2 mm Steinmann pin. Degree of deformity correction was then evaluated under fluoroscopy and found to be adequate. At this time, following standard AO principles and technique, a cannulated 6.5-mm short-threaded lag screw was then placed across the osteotomy site 45 mm long. Axillary lateral radiographs were utilized to confirm the position of the screw and adequate compression. Surgical site was then flushed with copious amounts of sterile saline. Periosteal structures were reapproximated using 2-0 Vicryl, subcutaneous tissue layers were reapproximated using 4-0 Vicryl, and skin was reapproximated using 4-0 Monocryl in a running subcuticular type fashion. PROCEDURE #3: Distal calcaneal osteotomy/lateral column lengthening with allograft. Attention was then performed to the lateral aspect of the calcaneocuboid joint which was marked under fluoroscopy. At this time, 1.5 mm proximal along the lateral aspect of the calcaneal neck was evaluated and marked. At this time, dissection of anterior calcaneal neck was performed at this intersection, and approximately 2 cm longitudinal foot abscess incision was made using #15 blade. This incision was extended up to subcutaneous tissue layers with care taken to identify, avoid and retract all vital neurovascular structures. All bleeders were cauterized and ligated as needed and encountered. Peroneal tendons were retracted dorsally and plantarly respectively. At this time, a longitudinal periosteal incision was performed in line with skin incision. Periosteal structures were retracted dorsally and plantarly exposing the lateral aspect of a tear calcaneal neck. Under fluoroscopy, a 1.5-mm proximal longitudinal line was then evaluated and marked. At this time, a vertical osteotomy was performed using a sagittal saw with care being taken to preserve medial cortical neck. The osteotomy was then spread open with laminar spreading, correcting the foot adduction and recreating a notable arch. At this time, [employer] Allopure trial implants were then measured, and it was found that size 8-mm implant with adequately maintained arch without sacrificing medial cortical union at the osteotomy site. At this time, a [employer] 8-mm Allopure cancellous graft was then interposed into the osteotomy site. The patient was placed and was found to be in stably fixated and adhered. Surgical site was then flushed with copious amounts of normal sterile saline. Periosteal structures were then reapproximated using 2-0 Vicryl, subcutaneous tissues were then reapproximated using 4-0 Vicryl, and skin was reapproximated using 4-0 Monocryl in a running subcuticular type fashion. PROCEDURE #4: Right foot medial cuneiform osteotomy with allograft. Attention was then directed to the dorsal and medial aspects of the patient's mid foot where under fluoroscopic evaluation, anterior distal and proximal margins of the cuneiform were evaluated. At this point, approximately 1.5-mm linear longitudinal incision was performed at this bisection using #15-blade. This incision was extended down to the subcutaneous layers with care being taken to identify, avoid and retract all vital neurovascular structures. All bleeders were cauterized and ligated as needed. Dorsal medial cuneiform periosteal incision was performed in line with skin incision. Periosteal structures were retracted medially and laterally, thus exposing dorsal cortex of the medial cuneiform into the operative view. At this time using sagittal saw, distal one third of cuneiform body a dorsal to plantar oriented osteotomy was performed with care being taken to preserve plantar medial cuneiform bony cortex. At this time, utilizing laminar engineer second assistant, osteotomy was then distracted to create a dorsal base of wedge. It was noted at this time that foot varus was resolved. At this time, [employer] cotton Allopure trails were placed. At this time, a 6-mm [employer] Allopure cotton wedge allograft was cut to adequate size and depth and placed into the distracted osteotomy, then a specimen was removed, and it was found that graft was well interposed and fixated and positioned while maintaining varus correction of forefoot. Surgical site was then flushed with copious amounts of sterile saline. Periosteal structures were then reapproximated using 3-0 Vicryl, subcutaneous tissue was reapproximated using 4-0 Vicryl, and skin was reapproximated using 4-0 Monocryl in a running subcuticular type fashion. PROCEDURE #5: Right posterior tibial tendon debridement with synovectomy. Attention was then directed to the distal portion of the posterior tibial tendon where beginning at the posterior tendon insertion and approximately 4-cm curvilinear incision was made and oriented proximally along the course of the posterior tibial tendon using #15-blade. This incision was extended down to the subcutaneous tissue layer with care being taken to identify, avoid, and retract all vital neurovascular structures. All bleeders were cauterized and ligated as needed and encountered. Periosteal posterior tibial tendon sheath was then accounted and incised along the full course of the incision allowing for visualization of tendon fibers. It was noted that there was range of moderate to significant amount of synovitis along the course of the posterior tibial tendon. posterior tibial insertion along the course of this incision, no noted significant partial longitudinal tear, however, it was noted that there was heterogenic hypertrophy along the course of the tendon closer to the insertion point. Hypertropic synovial was then excised and passed from the operative filed. Damaged nonviable portions of the posterior tibial tendon were then excised and passed from the operative field. Surgical site was then flushed with copious amounts sterile saline. Integrity of posterior tibial tendon was then evaluated at this point and found to be adequate with no compromised tissue remaining. Tendon sheath was then reapproximated using 3-0 Vicryl and tendinous repair was also performed with 3-0 Vicryl. Subcutaneous tissue was then reapproximated using 4-0 Vicryl, skin was reapproximated using 4-0 Monocryl in a simple suture type fashion. All surgical sites were then dressed with Xeroform, 4x4 gauze, Kerlix, Nicki, Coban and Robert. Note that tourniquet time of two hours was reached during the course of this procedure at the time of maximum tourniquet time. Tourniquet was then deflated per protocol. Foot was allowed to reperfused. Tourniquet was not re-inflated for a total of 25 minutes, at which time after the 25 minutes total had lapsed, foot was re-exsanguinated, tourniquet was inflated, and the remaining the foot for further remainder of the procedure. The patient was then placed in a well-padded posterior splint. The attending was present for the entirety of this procedure. POSTOPERATIVE CONDITION: The patient tolerated the anesthesia and procedure well and was escorted to the recovery room with vital signs stable and neurovascular status intact to the right foot. The patient had no complaints or complications. The patient will follow up with Dr. Rivero in her office on an outpatient basis. Freeman Dougherty DPM Maryann Rivero DPM [facility] # [id number]
== END 2018-06-26 17:05 | disposition home or self-care (01) ==
LOC: H.OPSURG 06:42
PROVIDERS: ATTEND Podiatrist Foot & Ankle Surgery
DX: M21.41 Flat foot [pes planus] (acquired), right foot (principal); M65.861 Other synovitis and tenosynovitis, right lower leg; M67.01 Short Achilles tendon (acquired), right ankle
CPT/HCPCS: 27685; 27691; 28300; 73630; 76001; C1713; J0330; J0690; J1030; J1100; J2001; J2250; J2405; J2704; J3010; J7030; J7120